=== PATIENT | male | born 1995 | race Caucasian/White ===

== ENCOUNTER 2019-01-23 17:21 | Emergency (ER) | payer MEDICAID ==
[~2019-01-23] VITALS: Ht 177.8 cm; Wt 93.6 kg
[2019-01-23 17:41] VITALS: BP 114/63
== END 2019-01-23 19:20 | disposition home or self-care (01) ==
LOC: ER 17:21
DX: R07.89 Other chest pain (principal)
CPT/HCPCS: 93005; 99283

== ENCOUNTER 2024-08-29 18:04 | Emergency (ER) | payer MEDICAID ==
[~2024-08-29] VITALS: Ht 177.8 cm; Wt 108.5 kg
[2024-08-29 18:08] VITALS: BP 133/73; PULSE 65; RESP 18; TEMP 97.6; O2SAT 98
== END 2024-08-29 20:19 | disposition home or self-care (01) ==
LOC: ER 18:05
DX: R68.84 Jaw pain (principal)
CPT/HCPCS: 70100; 99283

== ENCOUNTER 2024-09-30 16:32 | Emergency (ER) | payer MEDICAID ==
[~2024-09-30] VITALS: Ht 180.3 cm; Wt 107.5 kg
[2024-09-30 16:36] VITALS: BP 141/93; PULSE 65; TEMP 97.6; O2SAT 96
[2024-09-30 17:03] VITALS: RESP 16
[2024-09-30] MEDS: ketorolac trometh 15mg/ml vial 15 MG/ML ML IM ONE (17:03)
[2024-09-30] MEDS ORDERED: AMOX-580 PO (17:08)
== END 2024-09-30 17:07 | disposition home or self-care (01) ==
LOC: ER 16:33
DX: K08.89 Other specified disorders of teeth and supporting structures (principal)
CPT/HCPCS: 96372; 99283; J1885